=== PATIENT | female | born 1970 | race Caucasian/White ===

== ENCOUNTER → 2017-07-18 | Outpatient (CLI) | payer BC ==
[~2017-07-18] MED LIST: CEPHALEXIN500 M1 PO; CLINDAMYCIN HC300 MG PO; DOXYCYCLINE 10100 MG PO; NO HOME MEDICATIONS; PROZAC40 MG PO; SENOKOT TABLET1 EA PO; WELLBUTRIN SR150 M1 PO; ZOFRAN ODT8 MG PO
[2017-07-18 12:04] LABS: BASO % 0.7 % (0.0-2.0); EOS # 0.1 (0.0-0.7); EOS % 1.4 % (0-4.0); GRAN # 3.3 (1.4-6.5); GRAN % 57.3 % (42.2-75.2); HEMATOCRIT 40.7 % (37.0-47.0); HEMOGLOBIN 13.6 g/dl (12.5-16.0); LYMPH # 1.8 (1.2-3.4); LYMPH % 30.7 % (20.0-51.0); MEAN CELL VOLUME 94 fl (80.0-100.0); MEAN CORPUSCULAR HEMOGLOBIN 31 pg (27.0-31.0); MEAN CORPUSCULAR HGB CONC 33 g/dl (33.0-37.0); MEAN PLATELET VOLUME 10.3 fl (7.4-10.4); MONO # 0.6 (0.1-0.6); MONO % 9.6 % (1.7-9.3); PLATELET COUNT 240 K/mm3 (130-400); RED BLOOD COUNT 4.33 M/mm3 (4.10-5.30); REDCELL DISTRIBUTION WIDTH-CV 12.2 % (11.5-14.5)
[2017-07-18 12:10] LABS: ALBUMIN 4.7 gm/dL (3.5-5.0); BILIRUBIN,TOTAL 0.5 mg/dL (0.0-1.0); CALCIUM 9.2 mg/dL (8.4-10.2); CREATININE, serum 0.92 mg/dL (0.52-1.25); TOTAL PROTEIN 7.8 gm/dL (6.4-8.2)
[2017-07-18 12:11] LABS: BILIRUBIN UNCONJUGATED 0.3 mg/dL (0.0-1.1); BILIRUBIN,DIRECT 0.2 mg/dL (0.0-0.4)
== END ==
LOC: COL.RAD 11:04
PROVIDERS: Nurse Practitioner Family
DX: N20.0 Calculus of kidney (principal); Z80.51 Family history of malignant neoplasm of kidney; Z87.442 Personal history of urinary calculi

== ENCOUNTER 2021-04-08 14:31 | Emergency (ER) | payer BC ==
[~2021-04-08] VITALS: Ht 165.1 cm; Wt 79.1 kg
[2021-04-08 15:06] LABS: BASO # 0.1 K/mm3 (0.0-0.2); BASO % 0.4 % (0.0-2.0); EOS # 0.1 K/mm3 (0.0-0.7); EOS % 0.7 % (0-4.0); GRAN # 8.8 K/mm3 (1.4-6.5); GRAN % 73.5 % (42.2-75.2); HEMOGLOBIN 14.6 g/dl (12.5-16.0); LYMPH # 1.9 K/mm3 (1.2-3.4); LYMPH % 15.6 % (20.0-51.0); MEAN CELL VOLUME 95 fl (80.0-100.0); MEAN CORPUSCULAR HEMOGLOBIN 31 pg (27.0-31.0); MEAN CORPUSCULAR HGB CONC 33 g/dl (33.0-37.0); MEAN PLATELET VOLUME 10.4 fl (7.4-10.4); MONO # 1.1 K/mm3 (0.1-0.6); MONO % 9.4 % (1.7-9.3); PLATELET COUNT 268 K/mm3 (130-400); RED BLOOD COUNT 4.65 M/mm3 (4.10-5.30); REDCELL DISTRIBUTION WIDTH-CV 12.9 % (11.5-14.5)
[2021-04-08 15:29] LABS: ALBUMIN 4.2 gm/dL (3.5-5.0); BILIRUBIN,TOTAL 0.7 mg/dL (0.2-1.2); CALCIUM 9.5 mg/dL (8.4-10.2); CREATININE, serum 1.04 mg/dL (0.57-1.11); POTASSIUM 3.5 mmol/L (3.5-4.5); TOTAL PROTEIN 8.1 gm/dL (6.2-8.1)
[2021-04-08 17:38] LABS: COLLECTION METHOD CLEAN CATCH
[2021-04-08 17:53] LABS: MUCOUS Present /lpf; PH 6 (5-8); URINE APPEARANCE Cloudy; URINE BACTERIA Rare /hpf; URINE BILIRUBIN Negative (NEGATIVE); URINE BLOOD 3+ (NEGATIVE); URINE COLOR Yellow; URINE GLUCOSE Negative (NEGATIVE); URINE KETONE 1+ (NEGATIVE); URINE LEUKOCYTE ESTERASE Negative (NEGATIVE); URINE NITRATE Negative (NEGATIVE); URINE PROTEIN(semi-quant) 1+ (NEGATIVE); URINE RBC >50 /hpf; URINE UROBILINOGEN Negative (NEGATIVE)
[2021-04-08] MEDS ORDERED: REGLAN 10MG10 MG/TAB PO (17:57)
[2021-04-08] MEDS ORDERED: TORADOL 10MG TA10 MG PO (17:57)
[2021-04-08 18:46] VITALS: BP 130/74; PULSE 75; TEMP 98.3
[2021-04-10] MEDS ORDERED: CEPHALEXIN500 M1 PO (14:10)
== END 2021-04-08 18:57 | disposition home or self-care (01) ==
LOC: COL.ER 14:31
PROVIDERS: Emergency Medicine
DX: N20.1 Calculus of ureter (principal); D72.829 Elevated white blood cell count, unspecified; G43.909 Migraine, unspecified, not intractable, without status migrainosus; Z79.899 Other long term (current) drug therapy
CPT/HCPCS: J1885; J2405; J2765; J7030; Q9967

== ENCOUNTER 2021-04-12 09:59 | Day surgery (SDC) | payer BC ==
[~2021-04-12] VITALS: Ht 162.6 cm; Wt 81.5 kg
[~2021-04-12 09:59] MED LIST changes: +REGLAN 10MG10 MG/TAB PO; +TORADOL 10MG TA10 MG PO
--- NOTE | 2021-04-12 10:23 | NUR ---
Patient ambulated back to bay #8 without difficulty or the use of assistive devices. Weight obtained. Vitals obtained. Consent reviewed and signed. Patient verbalized understanding of procedure. Lung sounds are clear. Heart is in sinus rythm. Bowel sounds are present in x4 quadrants. Medications reviewed. IV started on second attempt in R hand with #20, NS is infusing without difficulty. PO medications adminstered. Side rails x2. [facility] is at bedside. Will continue to monitor.
[2021-04-12] MEDS ORDERED: TOPAMAX 25MG25 M1 PO (10:40)
[2021-04-12] MEDS ORDERED: WELLBUTRIN XL300 M1 PO (10:40)
[2021-04-12 11:14] VITALS: BP 128/72; PULSE 88; TEMP 97.7
--- NOTE | 2021-04-12 11:34 | NUR ---
Patient stated severe reaction of First [employer] vaccine. Then recieved the [employer] vaccine a few months later.
[2021-04-12 12:23] VITALS: BP 115/61; PULSE 85; TEMP 96.4
--- NOTE | 2021-04-12 12:23 | NUR ---
Patient arrived on cart from PACU. Report recieved. Patient is emotional and states being very thankful to have such a great team. Tissues provided. Vitals obtained and are stable. Patients is present and is with his . Side rails x2. Will continue to monitor.
--- NOTE | 2021-04-12 12:28 | NUR ---
Patient requested assistance ambulating to bathroom. RN and escorted her to nearby bathroom. Patient voided successfully and stated that there was a little blood in her urine. RN educated patient on why this is normal for the next 2 days to 2 weeks. After getting patient back to bed, patient requested ice water and a cold muffin. Vitals obtained. Side rails x2. [facility] best is within reach. Will continue to monitor.
--- NOTE | 2021-04-12 12:30 | NUR ---
Patient has voided.
[2021-04-12 12:43] VITALS: BP 107/55; PULSE 79
--- NOTE | 2021-04-12 12:43 | NUR ---
Patient is tolerating her muffin and ice water well. Discharge criteria has been met and expresses desire to rest at home. Vitals obtained.
[2021-04-12 13:16] VITALS: BP 107/61; PULSE 75
--- NOTE | 2021-04-12 13:32 | NUR ---
IV discontinued at this time due to discharge. Catheter tip intact. No swelling or redness noted. Pressure bandage applied. Patient stated not needing any help to change into personal clothes and is currently using the bathroom with her .
--- NOTE | 2021-04-12 13:45 | NUR ---
Patient was escorted out to [facility] an acute care hospital via wheelchair by RAVINDRA Hernandez and her . Patient has her belongings and discharge information in her personal bag. is driving and patient was transferred into his care at this time. Both stated no further questions or concerns. Follow up appt made for 04/19/21 @ 7126, card given to patient.
== END 2021-04-12 13:45 | disposition home or self-care (01) ==
LOC: SDCO 09:59
DX: N20.1 Calculus of ureter (principal); K21.9 Gastro-esophageal reflux disease without esophagitis; G43.909 Migraine, unspecified, not intractable, without status migrainosus; K58.9 Irritable bowel syndrome, unspecified; F32.9 Major depressive disorder, single episode, unspecified; Z90.710 Acquired absence of both cervix and uterus; Z79.899 Other long term (current) drug therapy
CPT/HCPCS: J0690; J2704; J3010; J7030

== ENCOUNTER → 2024-02-14 | Outpatient (CLI) | payer BC ==
[~2024-02-14] MED LIST changes: +TOPAMAX 25MG25 M1 PO; +WELLBUTRIN XL300 M1 PO
== END ==
LOC: COL.RAD 08:24
DX: M79.89 Other specified soft tissue disorders (principal)